=== PATIENT | female | born 1945 | race Caucasian/White ===

== ENCOUNTER 2019-12-13 07:30 | Day surgery (SDC) | payer OTHER ==
[2019-12-11 08:58] LABS: ANION GAP 9.9 mmol/L (8-16); CALCIUM 8.9 mg/dL (8.5-10.1); CREATININE - SERUM 1.2 mg/dL (0.6-1.3); HEMATOCRIT 35.7 % (36.0-48.0); HEMOGLOBIN 11.7 g/dL (12-16); MCH 29.6 pg (26.0-34.0); MCHC 32.8 g/dL (31.0-37.0); MCV 90.4 fL (80.0-100.0); MEAN PLATELET VOLUME 9.2 fL (7.4-10.4); POTASSIUM - SERUM 3.9 mmol/L (3.5-5.1); RBC 3.95 10x6/uL (4.00-5.40); RDW 14.4 % (11.5-14.5); WBC 4.8 10x3/uL (4.8-10.8)
[~2019-12-13] VITALS: Ht 157.5 cm; Wt 77.1 kg
--- NOTE | ~2019-12-13 | OP ---
PATIENT NAME: MARGOT NUNN MEDICAL RECORD: [id number] :41 LOCATION:D.OPS ADMISSION DATE: SURGEON: NADIA MARIE DPM DATE OF OPERATION: 12/13/2019 PREOPERATIVE DIAGNOSES: 1. Hallux abductovalgus, right foot. 2. Hammertoe, right second digit. POSTOPERATIVE DIAGNOSES: 1. Hallux abductovalgus, right foot. 2. Hammertoe, right second digit. PROCEDURES: 1. Right Darrel bunionectomy. 2. Right second digital amputation. ANESTHESIA: General with local infiltrate around the right 1st and 2nd ray. HEMOSTASIS: Right ankle tourniquet at 250 mmHg. PREOPERATIVE DETAILS: The patient was taken to the OR and placed on the operating table in a supine position followed by induction of general anesthesia and infiltration of local anesthetic. The right extremity was then prepped and draped in usual aseptic technique followed by exsanguination and inflation of tourniquet. A 15 blade was used to create a 3.5-cm linear incision over the dorsal aspect of the first MPJ. The incision was deepened down through subcutaneous tissue being sure to avoid all vital structures. Dissection was carried down to the capsule where an inverted L capsulotomy was performed. The medial capsular flap was reflected and the head of first metatarsal was delivered. A sagittal saw was used to resect the medial eminence. A sagittal saw was then used to create a V osteotomy through and through. The capital fragment was translocated laterally and fixated with a 0.062 inch K-wire. The medial redundant shelf was resected with a bone saw, the pin was cut. The wound was flushed. The capsule was repaired with 2-0 Vicryl, the subcutaneous tissue with 4-0 Rapide and the skin was closed with 4-0 Rapide in a subcuticular technique followed by Dermabond. PROCEDURE #2: Amputation, right second digit. A 15-blade was used to create two elliptical incisions around the base of the second digit. The digit was then freed from foot by dissecting out the extensor longus and flexor longus tendons as well as disarticulation at the second MPJ. Once the toe was removed, the wound was flushed. The deep tissue and superficial tissue was then reapproximated with 4-0 Rapide and the skin was closed with 4-0 nylon in a simple interrupted technique. Deonna 4 x 4 and Conform were used to dress all the wounds followed by Kellie. Tourniquet was deflated. POSTOPERATIVE DETAILS: The patient tolerated the procedure well and left the OR with vital signs stable and vascular status at preoperative levels. The patient was transported to recovery per anesthesia in stable condition. TRANSINT:[id number] Voice Confirmation ID: [id number] DOCUMENT ID: [id number] OPERATIVE REPORT [id number] MARGOT NUNN MCKAY DPM CC: [id number] DICTATION DATE: 12/13/19 1205 FRUIT DRYER: 12/13/19 1508 [facility] [place] 12/13/19 [facility] [address] [place] [address]
[~2019-12-13 07:30] MED LIST: AMBIEN10 MG PO; BUPROPION HCL75 MG PO; CLARITIN 10 MG10 MG PO; DIOVAN80 MG PO; FLUTICASONE PRO16 GM NASAL; LIPITOR40 MG PO; PATANOL 0.1 % OP5 ML EACH EYE; PRISTIQ50 MG PO; SYNTHROID112 MCG PO; aciphex PO
[2019-12-13] MEDS ORDERED: FLUTICASONE PRO16 GM NASAL (07:56)
[2019-12-13 07:59] VITALS: BP 123/73; Ht 157.5 cm; Wt 77.1 kg
== END 2019-12-13 13:20 | disposition home or self-care (01) ==
LOC: D.OPS 07:30 → D.PAN 09:45 → D.OPS 11:00 → D.PAN 11:00 → D.OPS 13:20
PROVIDERS: Anesthesiology; ATTEND Podiatrist
DX: M20.11 Hallux valgus (acquired), right foot (principal); M20.41 Other hammer toe(s) (acquired), right foot